=== PATIENT | male | born 1935 | race Caucasian/White ===

== ENCOUNTER → 2024-06-20 10:11 | Outpatient (CLI) | payer MEDICARE, OTHER, SELFPAY ==
[2024-06-20 10:36] LABS: Platelet Count 278 X10^3/uL (150-400)
[2024-06-20 10:54] LABS: Prothrombin Time 11.7 SECONDS (9.4-12.5)
== END ==
PROVIDERS: PCP Internal Medicine; Referring Provider Internal Medicine; Visit Provider Internal Medicine
DX: R16.0 Hepatomegaly, not elsewhere classified (principal)
CPT/HCPCS: 36415; 85049; 85610